=== PATIENT | male | born 1970 | race Caucasian/White ===

== ENCOUNTER 2018-01-19 17:02 | Emergency (ER) | payer OTHER ==
[2016-11-04 13:41] VITALS: BMI 24.2
[~2018-01-19 17:02] MED LIST: CLIN-75 PO; CYCL10TA29 PO; LOR5/325 PO; MELA3TAB31 PO; MIRT-1 PO; MULT-1379 PO; PANT20TA27 PO; PANT40TA65 PO; THIA100T20 PO; TOBDOO OU
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
[2018-01-19] MEDS ORDERED: NS(*) 0.9% 1000 ML BAG 1,000 ML IV ONE (17:15)
[2018-01-19] MEDS ORDERED: THIAMINE HCL(*) 200 MG/2 ML IN 100 MG, FOLIC ACID(*) 50 MG/10 ML INJ 1 MG, MULTIVITAMIN... IV ONE (17:15)
[2018-01-19 17:32] LABS: PLATELET COUNT, AUTOMATED 150 K/uL (150-450)
[2018-01-19 17:39] LABS: INR 0.91
--- NOTE | 2018-01-19 17:58 | EKG ---
FACILITY: [facility] PATIENT NAME: JAYCE PATRICK : [id number] MR: [id number] V: [id number] EXAM DATE: ORDERING PHYSICIAN: FRANCESCO PERKINS TECHNOLOGIST: AINSLEY Test Reason : MEMORY LOSS Blood Pressure : / mmHG Vent. Rate : 082 BPM Atrial Rate : 082 BPM P-R Int : 170 ms QRS Dur : 104 ms QT Int : 394 ms P-R-T Axes : 068 058 063 degrees QTc Int : 460 ms Normal sinus rhythm Normal ECG No previous ECGs available Confirmed by Ken King ([id number] on 01/19/2018 8:08:38 PM Referred By: JOANNA Confirmed By:Ken Morton
--- NOTE | 2018-01-19 18:48 | RADIOLOGY IMAGING REPORT ---
FACILITY: [facility] PATIENT NAME: Madhu Coffey : 1970 MR: [id number] V: [id number] EXAM DATE: ORDERING PHYSICIAN: FRANCESCO PERKINS TECHNOLOGIST: [place] [facility] [place] Madhu Coffey : 1970 Visit/Account:[id number] Date of Sevice: 01/19/[address] scan without contrast COMPARISONS: Head CT scan dated November 03, 2016 ADDITIONAL PERTINENT HISTORY: None TECHNIQUE: Multiple axial images were obtained from the skull base to the vertex without IV contrast . One of the following dose optimization techniques was utilized in the performance of this exam: Aut omated exposure control; adjustment of the mA and/or kV according to the patient's size; or use of an iterative reconstruction technique. Specific details can be referenced in the facility's radiology CT exam operational policy. FINDINGS: Midline shift: Negative Ventricles: Negative Brain parenchyma: Patchy hypoattenuation within the periventricular and subcortical white matter. Ot herwise negative Extra-axial spaces: Mild cerebral atrophy. Intracranial vasculature: Cavernous internal carotid artery calcifications. Otherwise negative Osseous structures: Negative Paranasal sinuses and mastoid air cells: Lobular mucosal thickening involving both maxillary sinuses . Otherwise negative Surrounding soft tissues and orbits: Negative IMPRESSION: 1. Age related changes as described above. 2. No evidence of acute intracranial pathology. Report Dictated By: Wally Phipps MD at 01/19/2018 6:44 PM Report E-Signed By: Wally Phipps MD at 01/19/2018 6:46 PM WSN:[id number]
--- NOTE | 2018-01-19 18:50 | RADIOLOGY IMAGING REPORT ---
FACILITY: [facility] PATIENT NAME: Madhu Coffey : 1970 MR: [id number] V: [id number] EXAM DATE: ORDERING PHYSICIAN: FRANCESCO PERKINS TECHNOLOGIST: Location: [facility] [place] Patient: Madhu Coffey : 1970 Visit/Account:[id number] Date of Sevice: 01/19/2018 CHEST PA AND LAT COMPARISONS: November 09, 2016 ADDITIONAL PERTINENT HISTORY: Chest pain FINDINGS: Cardiomediastinal silhouette: Negative. Pulmonary vasculature: Negative. Lung recio: Negative. Pleural spaces: Negative. Osseous structures: Negative. Surrounding soft tissues: Negative. IMPRESSION: No evidence of acute cardiopulmonary disease. Report Dictated By: Wally Phipps MD at 01/19/2018 6:46 PM Report E-Signed By: Wally Phipps MD at 01/19/2018 6:47 PM WSN:[id number]
[2018-01-19 19:20] VITALS: BP 128/92
== END 2018-01-19 20:52 ==
LOC: ER 17:57
DX: F10.129 Alcohol abuse with intoxication, unspecified (principal); Z87.891 Personal history of nicotine dependence; R51 Headache; R07.9 Chest pain, unspecified
CPT/HCPCS: 70450; 71046; 80320; 85025; 85610; 85730; 93005; 96365; 96366; 99284; J3411; J7030; 82040; 82247; 82310; 82374; 82435; 82565; 82947; 84075; 84132; 84155; 84295; 84450; 84460; 84520

== ENCOUNTER 2018-01-19 20:36 | Inpatient (IN) | payer OTHER ==
[2016-11-04 13:41] VITALS: Ht 182.9 cm; Wt 74.8 kg
[~2018-01-19] VITALS: Ht 182.9 cm; Wt 74.8 kg
[2018-01-19] MEDS ORDERED: MAG HYD/AL HYD/SIMETH 30ML UDC PO PRN (21:40)
[2018-01-19] MEDS: LORazepam 1 MG TAB PO PRN ×2 (21:56→23:09)
[2018-01-19 22:00] VITALS: BP 124/84
[2018-01-19 23:00] VITALS: BP 117/82
[2018-01-20] VITALS (8 sets, daily range): BP systolic 124–144; BP diastolic 65–98
[2018-01-20] MEDS: LORazepam 1 MG TAB PO PRN ×11 (00:15→23:46)
[2018-01-20] MEDS: MULTIVITAMINS TAB PO SCH (08:26)
[2018-01-20] MEDS: FOLIC ACID 1 MG TAB PO SCH (08:26)
[2018-01-20] MEDS: THIAMINE HCL 100 MG TAB PO SCH (08:26)
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
[2018-01-21] VITALS (7 sets, daily range): BP systolic 122–150; BP diastolic 87–109
[2018-01-21] MEDS: LORazepam 1 MG TAB PO PRN ×12 (02:46→23:06)
[2018-01-21] MEDS ORDERED: clonazePAM 0.5 MG ODT TABDP PO ONE (05:50)
[2018-01-21 07:07] LABS: PLATELET COUNT, AUTOMATED 103 K/uL (150-450)
[2018-01-21] MEDS: THIAMINE HCL 100 MG TAB PO SCH (08:16)
[2018-01-21] MEDS: FOLIC ACID 1 MG TAB PO SCH (08:16)
[2018-01-21] MEDS: MULTIVITAMINS TAB PO SCH (08:16)
--- NOTE | 2018-01-21 09:11 | BHS Progress Note ---
BHS - Subjective Progress Notes Subjective Patient continues in severe alcohol withdrawal, demonstrating delirious behavior through the night and a very high tolerance for benzodiazepines. CMP and CBC today, will continue treatment. Patient has written AMA letter, but will have to be detained if he continues to desire to leave, as he is currently in DT's.. Patient is able to eat and keep fluids down. Suicidal Ideation: None Homicidal Ideation: None BHS - Objective Physical Exam Vital Signs Vital Signs Date Time Temp Pulse Resp B/P (MAP) Pulse Ox O2 Delivery O2 Flow Rate FiO2 01/21/18 07:15 97.8 88 18 150/100 (117) 95 Room Air Hematology Test 01/20/18 11:57 01/21/18 06:59 Urine Color Yellow Urine Clarity Clear Urine pH 7.0 pH (4.8-9.5) Urine Specific [place] 1.010 Urine Protein Negative mg/dL (NEGATIVE) Urine Glucose (UA) Negative mg/dL (NEGATIVE) Urine Ketones Negative mg/dL (NEGATIVE) Urine Blood Negative (NEGATIVE) Urine Nitrite Negative (NEGATIVE) Urine Bilirubin Negative (NEGATIVE) Urine Urobilinogen 2.0 mg/dL (0.2-1.9) Urine Leukocyte Esterase Negative (NEGATIVE) Urine RBC <1 /HPF (0-2/HPF) Urine WBC <1 /HPF (0-5/HPF) Urine Squamous Epithelial Cells Few /LPF (</=FEW) Urine Bacteria Negative /HPF (NONE-FEW) Urine Mucus None /HPF (NONE-FEW) Urine Opiates Screen Negative Urine Barbiturates Screen Negative Ur Tricyclic Antidepressants Screen Negative Urine Phencyclidine Screen Negative Urine Amphetamines Screen Negative Urine Benzodiazepines Screen Positive Urine Cocaine Screen Negative Urine Cannabinoids Screen Negative Red Blood Count 4.44 M/uL (4.00-5.60) Mean Corpuscular Volume 100.0 fL (80.0-96.0) Mean Corpuscular Hemoglobin 34.8 pg (26.0-33.0) Mean Corpuscular Hemoglobin Concent 34.8 g/dL (32.0-36.0) Red Cell Distribution Width 14.1 % (11.5-14.5) Mean Platelet Volume 9.1 fL (7.2-11.1) Neutrophils (%) (Auto) 42.1 % (39.4-72.5) Lymphocytes (%) (Auto) 43.6 % (17.6-49.6) Monocytes (%) (Auto) 10.3 % (4.1-12.4) Eosinophils (%) (Auto) 2.8 % (0.4-6.7) Basophils (%) (Auto) 1.2 % (0.3-1.4) Nucleated RBC Relative Count (auto) 0.1 /100WBC Neutrophils # (Auto) 1.7 K/uL (2.0-7.4) Lymphocytes # (Auto) 1.7 K/uL (1.3-3.6) Monocytes # (Auto) 0.4 K/uL (0.3-1.0) Eosinophils # (Auto) 0.1 K/uL (0.0-0.5) Basophils # (Auto) 0.0 K/uL (0.0-0.1) Nucleated RBC Absolute Count (auto) 0.00 K/uL Sodium Level 138 mmol/L (137-145) Potassium Level 3.6 mmol/L (3.5-5.0) Chloride Level 97 mmol/L (98-107) Carbon Dioxide Level 27 mmol/L (22-30) Blood Urea Nitrogen 4 mg/dl (9-21) Creatinine 0.70 mg/dl (0.66-1.25) Glomerular Filtration Rate Calc > 60.0 Random Glucose 148 mg/dl (75-110) Calcium Level 9.8 mg/dl (8.4-10.2) Magnesium Level 1.6 mg/dl (1.7-2.2) Total Bilirubin 1.4 mg/dl (0.2-1.3) Aspartate Amino Transf (AST/SGOT) 165 U/L (0-35) Alanine Aminotransferase (ALT/SGPT) 279 U/L (0-56) Alkaline Phosphatase 56 U/L (0-126) Total Protein 7.3 g/dl (6.3-8.2) Albumin 4.6 g/dl (3.5-5.0) Chemistry Test 01/20/18 11:57 01/21/18 06:59 Urine Color Yellow Urine Clarity Clear Urine pH 7.0 pH (4.8-9.5) Urine Specific Tensed 1.010 Urine Protein Negative mg/dL (NEGATIVE) Urine Glucose (UA) Negative mg/dL (NEGATIVE) Urine Ketones Negative mg/dL (NEGATIVE) Urine Blood Negative (NEGATIVE) Urine Nitrite Negative (NEGATIVE) Urine Bilirubin Negative (NEGATIVE) Urine Urobilinogen 2.0 mg/dL (0.2-1.9) Urine Leukocyte Esterase Negative (NEGATIVE) Urine RBC <1 /HPF (0-2/HPF) Urine WBC <1 /HPF (0-5/HPF) Urine Squamous Epithelial Cells Few /LPF (</=FEW) Urine Bacteria Negative /HPF (NONE-FEW) Urine Mucus None /HPF (NONE-FEW) Urine Opiates Screen Negative Urine Barbiturates Screen Negative Ur Tricyclic Antidepressants Screen Negative Urine Phencyclidine Screen Negative Urine Amphetamines Screen Negative Urine Benzodiazepines Screen Positive Urine Cocaine Screen Negative Urine Cannabinoids Screen Negative White Blood Count 4.0 k/uL (4.5-11.0) Red Blood Count 4.44 M/uL (4.00-5.60) Hemoglobin 15.4 g/dL (14.0-18.0) Hematocrit 44.4 % (42.0-52.0) Mean Corpuscular Volume 100.0 fL (80.0-96.0) Mean Corpuscular Hemoglobin 34.8 pg (26.0-33.0) Mean Corpuscular Hemoglobin Concent 34.8 g/dL (32.0-36.0) Red Cell Distribution Width 14.1 % (11.5-14.5) Platelet Count 103 K/uL (150-450) Mean Platelet Volume 9.1 fL (7.2-11.1) Neutrophils (%) (Auto) 42.1 % (39.4-72.5) Lymphocytes (%) (Auto) 43.6 % (17.6-49.6) Monocytes (%) (Auto) 10.3 % (4.1-12.4) Eosinophils (%) (Auto) 2.8 % (0.4-6.7) Basophils (%) (Auto) 1.2 % (0.3-1.4) Nucleated RBC Relative Count (auto) 0.1 /100WBC Neutrophils # (Auto) 1.7 K/uL (2.0-7.4) Lymphocytes # (Auto) 1.7 K/uL (1.3-3.6) Monocytes # (Auto) 0.4 K/uL (0.3-1.0) Eosinophils # (Auto) 0.1 K/uL (0.0-0.5) Basophils # (Auto) 0.0 K/uL (0.0-0.1) Nucleated RBC Absolute Count (auto) 0.00 K/uL Glomerular Filtration Rate Calc > 60.0 Calcium Level 9.8 mg/dl (8.4-10.2) Magnesium Level 1.6 mg/dl (1.7-2.2) Total Bilirubin 1.4 mg/dl (0.2-1.3) Aspartate Amino Transf (AST/SGOT) 165 U/L (0-35) Alanine Aminotransferase (ALT/SGPT) 279 U/L (0-56) Alkaline Phosphatase 56 U/L (0-126) Total Protein 7.3 g/dl (6.3-8.2) Albumin 4.6 g/dl (3.5-5.0) Toxicology Test 01/20/18 11:57 Urine Opiates Screen Negative Urine Barbiturates Screen Negative Ur Tricyclic Antidepressants Screen Negative Urine Phencyclidine Screen Negative Urine Amphetamines Screen Negative Urine Benzodiazepines Screen Positive Urine Cocaine Screen Negative Urine Cannabinoids Screen Negative Urinalysis Test 01/20/18 11:57 Urine Color Yellow Urine Clarity Clear Urine pH 7.0 pH (4.8-9.5) Urine Specific Tensed 1.010 Urine Protein Negative mg/dL (NEGATIVE) Urine Glucose (UA) Negative mg/dL (NEGATIVE) Urine Ketones Negative mg/dL (NEGATIVE) Urine Blood Negative (NEGATIVE) Urine Nitrite Negative (NEGATIVE) Urine Bilirubin Negative (NEGATIVE) Urine Urobilinogen 2.0 mg/dL (0.2-1.9) Urine Leukocyte Esterase Negative (NEGATIVE) Urine RBC <1 /HPF (0-2/HPF) Urine WBC <1 /HPF (0-5/HPF) Urine Squamous Epithelial Cells Few /LPF (</=FEW) Urine Bacteria Negative /HPF (NONE-FEW) Urine Mucus None /HPF (NONE-FEW) Muscle Strength and Tone: WNL Gait and Station: Steady S Medications Reviewed: Side Effects, Benefits of Medication, Risks Allergies Reviewed: Yes Mental Status Exam General Appearance: No Casual, No Well Groomed, No Good Eye Contact, Cooperative, Polite, Good Interaction, No Unkept, No Tearful, Psychomotor Agitation, No Psychomotor Retardation Speech: Spontaneous, Normal Rate, Normal Volume, Slurred Mood: Dysthmic/Depressed (frustreated, delerious) Affect: Neutral, Withdrawn Thought Process: No Loose Associations, No Flight of Ideas Thought Content: No Suicidal Ideation, No Homicidal Ideation, No Delusions, No Auditory Halllucinations, Visual Hallucinations, No Thought Broadcasting, No Ideas of Reference, No Obsessions, No Compulsions Sensorium: Clear Cognition: Alert & Oriented-Person, Alert & Oriented-Place, No Alert & Oriented -Time, No [id number] Memory: Immediate, Recent, Remote Intelligence: Average Insight Judgment: Poor Result Diagram: 01/21/1859 01/21/1859 [facility] Assessment and Plan [id number] Encounter Date: Jan 21, 2018 Sczp-jz-Avza Encounter Time: 09:00 [facility] Plan: Necessary Precautions, Individual/Group Therapy, Admin/Titrate Meds, Educate Patient Tobacco Medications: Not Appropriate Condition Multpiple Antipsychotics Used: No Problems: (1) Alcohol withdrawal Status: Acute (2) Alcohol use disorder, severe, in controlled environment Status: Chronic Condition 1. continue treatment. Problem Qualifiers (1) Alcohol withdrawal: Complication of substance-induced condition: with delirium Qualified Codes: F10.231 - Alcohol dependence with withdrawal delirium BENJAMIN CORNELIUS MD Jan 21, 2018 09:11
[2018-01-22 00:44] VITALS: BP 126/106
[2018-01-22] MEDS: LORazepam 1 MG TAB PO PRN ×7 (00:58→20:09)
[2018-01-22 06:09] VITALS: BP 135/97
[2018-01-22 08:00] VITALS: BP 121/91
[2018-01-22] MEDS: FOLIC ACID 1 MG TAB PO SCH (08:25)
[2018-01-22] MEDS: THIAMINE HCL 100 MG TAB PO SCH (08:25)
[2018-01-22] MEDS: MULTIVITAMINS TAB PO SCH (08:25)
--- NOTE | 2018-01-22 10:10 | BHS Progress Note ---
BHS - Subjective Progress Notes Subjective Patient experiencing significant withdrawal, which is ongoing. Patient cooperative on unit, will consider entering rehab. Mood frustrated, gait impaired. No other concerns. Suicidal Ideation: None Homicidal Ideation: None S - Objective Physical Exam Vital Signs Hematology Test 01/20/18 11:57 01/21/18 06:59 Urine Color Yellow Urine Clarity Clear Urine pH 7.0 pH (4.8-9.5) Urine Specific [place] 1.010 Urine Protein Negative mg/dL (NEGATIVE) Urine Glucose (UA) Negative mg/dL (NEGATIVE) Urine Ketones Negative mg/dL (NEGATIVE) Urine Blood Negative (NEGATIVE) Urine Nitrite Negative (NEGATIVE) Urine Bilirubin Negative (NEGATIVE) Urine Urobilinogen 2.0 mg/dL (0.2-1.9) Urine Leukocyte Esterase Negative (NEGATIVE) Urine RBC <1 /HPF (0-2/HPF) Urine WBC <1 /HPF (0-5/HPF) Urine Squamous Epithelial Cells Few /LPF (</=FEW) Urine Bacteria Negative /HPF (NONE-FEW) Urine Mucus None /HPF (NONE-FEW) Urine Opiates Screen Negative Urine Barbiturates Screen Negative Ur Tricyclic Antidepressants Screen Negative Urine Phencyclidine Screen Negative Urine Amphetamines Screen Negative Urine Benzodiazepines Screen Positive Urine Cocaine Screen Negative Urine Cannabinoids Screen Negative Red Blood Count 4.44 M/uL (4.00-5.60) Mean Corpuscular Volume 100.0 fL (80.0-96.0) Mean Corpuscular Hemoglobin 34.8 pg (26.0-33.0) Mean Corpuscular Hemoglobin Concent 34.8 g/dL (32.0-36.0) Red Cell Distribution Width 14.1 % (11.5-14.5) Mean Platelet Volume 9.1 fL (7.2-11.1) Neutrophils (%) (Auto) 42.1 % (39.4-72.5) Lymphocytes (%) (Auto) 43.6 % (17.6-49.6) Monocytes (%) (Auto) 10.3 % (4.1-12.4) Eosinophils (%) (Auto) 2.8 % (0.4-6.7) Basophils (%) (Auto) 1.2 % (0.3-1.4) Nucleated RBC Relative Count (auto) 0.1 /100WBC Neutrophils # (Auto) 1.7 K/uL (2.0-7.4) Lymphocytes # (Auto) 1.7 K/uL (1.3-3.6) Monocytes # (Auto) 0.4 K/uL (0.3-1.0) Eosinophils # (Auto) 0.1 K/uL (0.0-0.5) Basophils # (Auto) 0.0 K/uL (0.0-0.1) Nucleated RBC Absolute Count (auto) 0.00 K/uL Sodium Level 138 mmol/L (137-145) Potassium Level 3.6 mmol/L (3.5-5.0) Chloride Level 97 mmol/L (98-107) Carbon Dioxide Level 27 mmol/L (22-30) Blood Urea Nitrogen 4 mg/dl (9-21) Creatinine 0.70 mg/dl (0.66-1.25) Glomerular Filtration Rate Calc > 60.0 Random Glucose 148 mg/dl (75-110) Calcium Level 9.8 mg/dl (8.4-10.2) Magnesium Level 1.6 mg/dl (1.7-2.2) Total Bilirubin 1.4 mg/dl (0.2-1.3) Aspartate Amino Transf (AST/SGOT) 165 U/L (0-35) Alanine Aminotransferase (ALT/SGPT) 279 U/L (0-56) Alkaline Phosphatase 56 U/L (0-126) Total Protein 7.3 g/dl (6.3-8.2) Albumin 4.6 g/dl (3.5-5.0) Chemistry Test 01/20/18 11:57 01/21/18 06:59 Urine Color Yellow Urine Clarity Clear Urine pH 7.0 pH (4.8-9.5) Urine Specific [place] 1.010 Urine Protein Negative mg/dL (NEGATIVE) Urine Glucose (UA) Negative mg/dL (NEGATIVE) Urine Ketones Negative mg/dL (NEGATIVE) Urine Blood Negative (NEGATIVE) Urine Nitrite Negative (NEGATIVE) Urine Bilirubin Negative (NEGATIVE) Urine Urobilinogen 2.0 mg/dL (0.2-1.9) Urine Leukocyte Esterase Negative (NEGATIVE) Urine RBC <1 /HPF (0-2/HPF) Urine WBC <1 /HPF (0-5/HPF) Urine Squamous Epithelial Cells Few /LPF (</=FEW) Urine Bacteria Negative /HPF (NONE-FEW) Urine Mucus None /HPF (NONE-FEW) Urine Opiates Screen Negative Urine Barbiturates Screen Negative Ur Tricyclic Antidepressants Screen Negative Urine Phencyclidine Screen Negative Urine Amphetamines Screen Negative Urine Benzodiazepines Screen Positive Urine Cocaine Screen Negative Urine Cannabinoids Screen Negative White Blood Count 4.0 k/uL (4.5-11.0) Red Blood Count 4.44 M/uL (4.00-5.60) Hemoglobin 15.4 g/dL (14.0-18.0) Hematocrit 44.4 % (42.0-52.0) Mean Corpuscular Volume 100.0 fL (80.0-96.0) Mean Corpuscular Hemoglobin 34.8 pg (26.0-33.0) Mean Corpuscular Hemoglobin Concent 34.8 g/dL (32.0-36.0) Red Cell Distribution Width 14.1 % (11.5-14.5) Platelet Count 103 K/uL (150-450) Mean Platelet Volume 9.1 fL (7.2-11.1) Neutrophils (%) (Auto) 42.1 % (39.4-72.5) Lymphocytes (%) (Auto) 43.6 % (17.6-49.6) Monocytes (%) (Auto) 10.3 % (4.1-12.4) Eosinophils (%) (Auto) 2.8 % (0.4-6.7) Basophils (%) (Auto) 1.2 % (0.3-1.4) Nucleated RBC Relative Count (auto) 0.1 /100WBC Neutrophils # (Auto) 1.7 K/uL (2.0-7.4) Lymphocytes # (Auto) 1.7 K/uL (1.3-3.6) Monocytes # (Auto) 0.4 K/uL (0.3-1.0) Eosinophils # (Auto) 0.1 K/uL (0.0-0.5) Basophils # (Auto) 0.0 K/uL (0.0-0.1) Nucleated RBC Absolute Count (auto) 0.00 K/uL Glomerular Filtration Rate Calc > 60.0 Calcium Level 9.8 mg/dl (8.4-10.2) Magnesium Level 1.6 mg/dl (1.7-2.2) Total Bilirubin 1.4 mg/dl (0.2-1.3) Aspartate Amino Transf (AST/SGOT) 165 U/L (0-35) Alanine Aminotransferase (ALT/SGPT) 279 U/L (0-56) Alkaline Phosphatase 56 U/L (0-126) Total Protein 7.3 g/dl (6.3-8.2) Albumin 4.6 g/dl (3.5-5.0) Toxicology Test 01/20/18 11:57 Urine Opiates Screen Negative Urine Barbiturates Screen Negative Ur Tricyclic Antidepressants Screen Negative Urine Phencyclidine Screen Negative Urine Amphetamines Screen Negative Urine Benzodiazepines Screen Positive Urine Cocaine Screen Negative Urine Cannabinoids Screen Negative Urinalysis Test 01/20/18 11:57 Urine Color Yellow Urine Clarity Clear Urine pH 7.0 pH (4.8-9.5) Urine Specific [place] 1.010 Urine Protein Negative mg/dL (NEGATIVE) Urine Glucose (UA) Negative mg/dL (NEGATIVE) Urine Ketones Negative mg/dL (NEGATIVE) Urine Blood Negative (NEGATIVE) Urine Nitrite Negative (NEGATIVE) Urine Bilirubin Negative (NEGATIVE) Urine Urobilinogen 2.0 mg/dL (0.2-1.9) Urine Leukocyte Esterase Negative (NEGATIVE) Urine RBC <1 /HPF (0-2/HPF) Urine WBC <1 /HPF (0-5/HPF) Urine Squamous Epithelial Cells Few /LPF (</=FEW) Urine Bacteria Negative /HPF (NONE-FEW) Urine Mucus None /HPF (NONE-FEW) Vital Signs Date Time Temp Pulse Resp B/P (MAP) Pulse Ox O2 Delivery O2 Flow Rate FiO2 01/22/18 06:09 98.5 85 18 135/97 (110) 95 Room Air Muscle Strength and Tone: WNL Gait and Station: Steady [facility] Medications Reviewed: Side Effects, Benefits of Medication, Risks Allergies Reviewed: Yes Mental Status Exam General Appearance: No Casual, No Well Groomed, No Good Eye Contact, Cooperative, Polite, Good Interaction, No Unkept, No Tearful, Psychomotor Agitation, No Psychomotor Retardation Speech: Spontaneous, Normal Rate, No Normal Volume, No Normal Tone, Slurred Mood: Dysthmic/Depressed (frustreated, ) Affect: Neutral, Withdrawn Thought Process: Goal Directed (wants to go home), No Loose Associations, No Flight of Ideas Thought Content: No Suicidal Ideation, No Homicidal Ideation, No Delusions, No Auditory Halllucinations, No Visual Hallucinations, No Thought Broadcasting, No Ideas of Reference, No Obsessions, No Compulsions Sensorium: Clear Cognition: Alert & Oriented-Person, Alert & Oriented-Place, Alert & Oriented- Time, [id number] Memory: Immediate, Recent, Remote Intelligence: Average Insight Judgment: Poor (secondary to extent of alcohol use disorder, ) Result Diagram: 01/21/18 0659 01/21/18 0659 [facility] Assessment and Plan Wjhq-[id number] Encounter Date: Jan 22, 2018 [id number] Encounter Time: 11:30 [facility] Plan: Necessary Precautions, Individual/Group Therapy, Admin/Titrate Meds, Educate Patient Tobacco Medications: Not Appropriate Condition Multpiple Antipsychotics Used: No Problems: (1) Alcohol withdrawal Status: Acute (2) Alcohol use disorder, severe, in controlled environment Status: Chronic Condition 1. continue treatment. 2. look into residential placement. Problem Qualifiers (1) Alcohol withdrawal: Complication of substance-induced condition: with delirium Qualified Codes: F10.231 - Alcohol dependence with withdrawal delirium BENJAMIN CORNELIUS MD Jan 22, 2018 10:09
[2018-01-22 13:10] VITALS: BP 130/100
[2018-01-22 16:55] VITALS: BP 115/88
[2018-01-22 17:39] VITALS: BP 126/90
[2018-01-23 00:10] VITALS: BP 138/101
[2018-01-23] MEDS: LORazepam 1 MG TAB PO PRN ×6 (00:13→22:18)
[2018-01-23 03:15] VITALS: BP 129/88
[2018-01-23 07:50] VITALS: BP 148/100
[2018-01-23] MEDS: THIAMINE HCL 100 MG TAB PO SCH (08:31)
[2018-01-23] MEDS: FOLIC ACID 1 MG TAB PO SCH (08:31)
[2018-01-23] MEDS: MULTIVITAMINS TAB PO SCH (08:31)
--- NOTE | 2018-01-23 10:20 | BHS Progress Note ---
[facility] - Subjective Progress Notes Subjective "I'm going to go to rehab." Previous residential treatment through [facility]: 2009 five week program, 2016 3 month program. Reports sober x 1 week after last residential program Currently denies urge to drink, unsteady gait, use of walker, tremulous, denies N/V/D Prior to admit was drinking 1 pint to 2 pints per day Reports mother brother daughter (lives in [place]) best support system Reports anxiety re:upcoming release Denies depression or suicidal ideation Denies anger Reports last SI 2014 Suicidal Ideation: None Homicidal Ideation: None [facility] - Objective Physical Exam Vital Signs Vital Signs Date Time Temp Pulse Resp B/P (MAP) Pulse Ox O2 Delivery O2 Flow Rate FiO2 01/23/18 07:50 98.8 114 16 148/100 (116) 96 Room Air Muscle Strength and Tone: WNL Gait and Station: Steady [facility] Medications Reviewed: Side Effects, Benefits of Medication, Risks Allergies Reviewed: Yes Mental Status Exam General Appearance: No Casual, No Well Groomed, No Good Eye Contact, Cooperative, Polite, Good Interaction, No Unkept, No Tearful, Psychomotor Agitation, No Psychomotor Retardation Speech: Spontaneous, Normal Rate, No Normal Volume, No Normal Tone, Slurred Mood: Dysthmic/Depressed (frustreated, ) Affect: Neutral, Withdrawn Thought Process: Goal Directed (wants to go home), No Loose Associations, No Flight of Ideas Thought Content: No Suicidal Ideation, No Homicidal Ideation, No Delusions, No Auditory Halllucinations, No Visual Hallucinations, No Thought Broadcasting, No Ideas of Reference, No Obsessions, No Compulsions Sensorium: Clear Cognition: Alert & Oriented-Person, Alert & Oriented-Place, Alert & Oriented- Time, [id number] Memory: Immediate, Recent, Remote Intelligence: Average Insight Judgment: Poor (secondary to extent of alcohol use disorder, ) Result Diagram: 01/21/18 0659 01/21/18 0659 [facility] Assessment and Plan [place]uyo-[id number] Encounter Date: Jan 23, 2018 [id number] Encounter Time: 10:15 [facility] Plan: Necessary Precautions, Individual/Group Therapy, Admin/Titrate Meds, Educate Patient Tobacco Medications: Not Appropriate Condition Multpiple Antipsychotics Used: No Problems: (1) Alcohol use disorder, severe, in controlled environment Status: Chronic (2) Alcohol withdrawal Status: Acute Condition Continue close monitoring Continue alcohol withdrawal treatment Encourage substance abuse residential program Continue current medications and treatment Problem Qualifiers (1) Alcohol withdrawal: Complication of substance-induced condition: with delirium Qualified Codes: F10.231 - Alcohol dependence with withdrawal delirium SUSANA TONG NP Jan 23, 2018 10:19
[2018-01-23 12:40] VITALS: BP 118/80
[2018-01-23 17:25] VITALS: BP 112/78
[2018-01-23 22:00] VITALS: BP 122/94
[2018-01-23] MEDS: traZODone HCL 50 MG TAB PO PRN (22:48)
[2018-01-24 06:06] VITALS: BP 119/82
[2018-01-24] MEDS: THIAMINE HCL 100 MG TAB PO SCH (07:34)
[2018-01-24] MEDS: MULTIVITAMINS TAB PO SCH (07:34)
[2018-01-24] MEDS: FOLIC ACID 1 MG TAB PO SCH (07:34)
[2018-01-24 08:10] VITALS: BP 108/62
[2018-01-24] MEDS ORDERED: IBUPROFEN 600 MG TAB PO PRN (10:50)
[2018-01-24] MEDS ORDERED: LOPERAMIDE HCL 2 MG CAP PO PRN (10:50)
--- NOTE | 2018-01-24 10:57 | BHS Progress Note ---
[facility] - Subjective Progress Notes Subjective "My mood is worse the longer I stay here." Depression and anxiety "5, it all stems from being locked up in here." Tremor continues, NWI score 5 Headache began this am, diarrhea this am Gait unsteady without walker Daughter traveling here from [place], will arrive this pm, will continue to encourage residential substance abuse treatment upon discharge Denies urge to drink Suicidal Ideation: None Homicidal Ideation: None [facility] - Objective Physical Exam Vital Signs Vital Signs Date Time Temp Pulse Resp B/P (MAP) Pulse Ox O2 Delivery O2 Flow Rate FiO2 01/24/18 06:06 98.3 93 119/82 (94) 95 Room Air 01/23/18 22:00 16 Muscle Strength and Tone: WNL Gait and Station: Steady [facility] Medications Reviewed: Side Effects, Benefits of Medication, Risks Allergies Reviewed: Yes Mental Status Exam General Appearance: No Casual, No Well Groomed, No Good Eye Contact, Cooperative, Polite, Good Interaction, No Unkept, No Tearful, Psychomotor Agitation, No Psychomotor Retardation Speech: Spontaneous, Normal Rate, No Normal Volume, No Normal Tone, Slurred Mood: Dysthmic/Depressed (frustreated, ) Affect: Neutral, Withdrawn Thought Process: Goal Directed (wants to go home), No Loose Associations, No Flight of Ideas Thought Content: No Suicidal Ideation, No Homicidal Ideation, No Delusions, No Auditory Halllucinations, No Visual Hallucinations, No Thought Broadcasting, No Ideas of Reference, No Obsessions, No Compulsions Sensorium: Clear Cognition: Alert & Oriented-Person, Alert & Oriented-Place, Alert & Oriented- Time, [id number] Memory: Immediate, Recent, Remote Intelligence: Average Insight Judgment: Poor (secondary to extent of alcohol use disorder, ) Result Diagram: 01/21/18 0659 01/21/18 0659 [facility] Vital Signs Date Time Temp Pulse Resp B/P (MAP) Pulse Ox O2 Delivery O2 Flow Rate FiO2 01/24/18 06:06 98.3 93 119/82 (94) 95 Room Air 01/23/18 22:00 16 Microbiology Allergies Coded Allergies No Known Drug Allergies (Unverified11/02/16) [facility] Assessment and Plan Opax-ua-Mact Encounter Date: Jan 24, 2018 Vrrc-ok-Vhbo Encounter Time: 10:54 [facility] Plan: Necessary Precautions, Individual/Group Therapy, Admin/Titrate Meds, Educate Patient Tobacco Medications: Not Appropriate Condition Multpiple Antipsychotics Used: No Problems: (1) Alcohol use disorder, severe, in controlled environment Status: Chronic (2) Alcohol withdrawal Status: Acute Condition Continue current medication and treatment Continue NWI protocol for alcohol withdrawal Ongoing coordination of care w/family encouraging substance abuse residential treatment program Problem Qualifiers (1) Alcohol withdrawal: Complication of substance-induced condition: with delirium Qualified Codes: F10.231 - Alcohol dependence with withdrawal delirium SUSANA TONG NP Jan 24, 2018 10:57
[2018-01-24] MEDS: LORazepam 1 MG TAB PO PRN ×3 (11:02→19:51)
[2018-01-24 15:20] VITALS: BP 108/78
[2018-01-24 19:20] VITALS: BP 126/84
[2018-01-24] MEDS: traZODone HCL 50 MG TAB PO PRN (22:10)
[2018-01-25 06:02] VITALS: BP 106/71
[2018-01-25 07:09] LABS: PLATELET COUNT, AUTOMATED 108 K/uL (150-450)
[2018-01-25] MEDS: MULTIVITAMINS TAB PO SCH (08:15)
[2018-01-25] MEDS: THIAMINE HCL 100 MG TAB PO SCH (08:15)
[2018-01-25] MEDS: FOLIC ACID 1 MG TAB PO SCH (08:15)
[2018-01-25] MEDS ORDERED: FOLI-68 PO (10:39)
[2018-01-25] MEDS ORDERED: THIA100T62 PO (10:40)
[2018-01-25] MEDS ORDERED: TRAZ50TA34 PO (10:40)
[2018-01-25] MEDS ORDERED: IBUP600T22 PO (10:41)
--- NOTE | 2018-01-27 19:10 | DISCHARGE SUMMARY ---
DATE OF ADMISSION: January 19, 2018 DATE OF DISCHARGE: January 25, 2018 Patient was seen on the a.m. of 25 January 2018 at approximately 0900 hours for note concerning this dictation. FINAL DIAGNOSES PER DIAGNOSTIC AND STATISTICAL MANUAL OF MENTAL DISORDERS, FIFTH EDITION 1. Alcohol use disorder, severe. 2. Alcohol withdrawal, considered complete. 3. Rule out persisting depressive disorder. 4. Patient have supportive family relationships. REASON FOR ADMISSION This is a pleasant, 47-year-old male who suffers from long-term chronic alcohol use disorder, severe in nature. Patient was admitted under a voluntary basis January 19, 2018. Patient experienced significant withdrawal on the unit, treated to completion with lorazepam secondary to impaired hepatic status. Patient's alcohol withdrawal, again, was considered to be significant in nature. Patient agreed to enter rehab through the [facility] in [place], [place]. Patient would first enter the [facility] in [place] to await transfer to [facility] when bed became available. Patient's mood continued to improve. Patient indicated overall feeling well in the absence of alcohol use by time of discharge. Patient discharged to care of family members who would transport to [place]. PHYSICAL EXAMINATION Please see emergency room note. Notable for: GENERAL: Intoxicated 47-year-old male. VITAL SIGNS: At time of admission, vital signs temperature 98.4, pulse 96, respiratory rate 18, blood pressure 132/98, and pulse oximetry 93% on room air. At time of discharge from [facility], temperature 97.6, pulse 73, respiratory rate 15, blood pressure 106/71, and pulse oximetry 95% on room air. LABORATORY DATA On January 25, 2018, CBC notable for MCV elevated at 101.4, MCH 35.2 and elevated , and platelet count low at 108,000. Chemistry panel on 25 January 2018 indicated AST elevated at 86 and ALT 208 with a normal total bilirubin and hepatic functioning overall improving. Urinalysis was unremarkable. Toxicology screen positive for benzodiazepines which patient was likely given in the Emergency Room. MENTAL STATUS EXAMINATION AT TIME OF DISCHARGE GENERAL APPEARANCE, BEHAVIOR, AND ATTITUDE: This is a fairly well-groomed, 47- year-old male, appears stated age, making good eye contact. No psychomotor agitation or retardation. No bizarre mannerisms or tics. No periods of tearfulness. SPEECH: Within normal limits. Regular rate, rhythm, volume, and tone. MOOD: Stated as good. AFFECT: Full and mood congruent. THOUGHT PROCESSES: Goal directed, logical. No loose associations or flight of ideas. THOUGHT CONTENT: Free of auditory or visual hallucinations, ideas of reference , thought broadcasting, delusions, obsessions, compulsions. Patient adamantly denying suicidal or homicidal ideations. SENSORIUM: Clear. COGNITION: Alert and oriented to person, place, time, and situation. MEMORY: Immediate, recent, and remote estimated intact. INTELLIGENCE: Average based on interview. INSIGHT AND JUDGMENT: Considered appropriate for ongoing outpatient management in the absence of alcohol use. RESULTS OF TESTING IMAGING: On January 19, 2018, patient did have a CT of his head performed. Patient noted to have mild cerebral atrophy with patchy hypoattenuation within the paraventricular and subcortical white matter. Otherwise unremarkable. Chest x-ray was negative. LABORATORY DATA: See above. CONSULTATIONS None. TREATMENT Patient received medications, participated in individual and group therapy. HOSPITAL COURSE Patient's alcohol withdrawal was considered severe in nature and significant, requiring treatment with lorazepam due to impaired hepatic functioning, which continued to improve throughout his stay. Patient's alcohol withdrawal was treated again to completion, and patient took an active role in his treatment. CONDITION OF PATIENT ON DISCHARGE Stable, considered minimal risk to himself or others and appropriate for entrance into rehab. DISPOSITION Patient discharged to home in care of family members. He would follow up at the [facility] prior to entrance into [facility] rehab program. Patient would abstain from alcohol. He was given the crisis line should symptoms return. DISCHARGE MEDICATIONS Patient would continue: 1. Folic acid 1 mg daily. 2. Ibuprofen 600 mg as needed every six hours for pain. 3. Multivitamin with minerals daily. 4. Thiamine 100 mg daily. 5. Trazodone 50 to 150 mg orally at bedtime. Risks, benefits, and alternatives of above discharge plan were discussed. Informed consent was given to proceed with above discharge plan by this competent patient, patient's family members, and accepting facility, [facility]. JOEY
== END 2018-01-25 14:50 | disposition home or self-care (01) | DRG 897 ==
LOC: BHS 20:36
PROVIDERS: ADMIT Psychiatry & Neurology Psychiatry; ATTEND Psychiatry & Neurology Psychiatry
DX: F10.231 Alcohol dependence with withdrawal delirium (principal); F34.1 Dysthymic disorder; F12.90 Cannabis use, unspecified, uncomplicated; Y90.8 Blood alcohol level of 240 mg/100 ml or more; Z91.5 Personal history of self-harm; Z81.1 Family history of alcohol abuse and dependence
CPT/HCPCS: 36415; 80305; 81001; 82040; 82247; 82310; 82374; 82435; 82565; 82947; 83735; 84075; 84132; 84155; 84295; 84450; 84460; 84520; 85025